=== PATIENT | female | born 1940 | race Hispanic/Latino ===

== ENCOUNTER → 2017-08-21 | Outpatient (CLI) | payer MEDICARE ==
[~2017-08-21] MED LIST: ASPIRIN325 MG PO; LOSARTAN POTASS50 MG PO; SIMVASTATIN20 MG PO
--- NOTE | 2017-08-21 18:40 | Diagnostic Imaging Report ---
PROCEDURE: Frontal and lateral views of the chest. COMPARISON: 01/30/2017 INDICATIONS: ACUTE BRONCHITIS FINDINGS: Lines/tubes: None. Lungs: The lungs are well inflated and clear. There is no evidence of pneumonia or pulmonary edema. Pleura: There is no pleural effusion or pneumothorax. Heart and mediastinum: Normal heart size. Tortuous, calcified thoracic aorta. Bones: No acute bony abnormality. Multilevel degenerative changes of the thoracic spine. IMPRESSION: 1. No acute cardiopulmonary disease. Dictated by: Gagan Evans M.D. on 08/21/2017 at 18:48 Electronically approved by: Gagan Evans M.D. on 08/21/2017 at 18:48
== END ==
LOC: RAD 16:59
PROVIDERS: ATTEND Internal Medicine
DX: J20.9 Acute bronchitis, unspecified (principal)
CPT/HCPCS: 71046